=== PATIENT | male | born 1965 | race Caucasian/White ===

== ENCOUNTER 2016-04-29 10:15 | Day surgery (SDC) | payer OTHER, BC ==
[~2016-04-29 10:15] MED LIST: Lactated Ringers 1,000 ML IV SCH
[2016-04-29] MEDS ORDERED: Propofol 200 MG/20 ML SDV ONE ×2 (10:46→11:42)
[2016-04-29] MEDS ORDERED: Midazolam 1 MG/ML 2 ML SDV ONE (10:46)
[2016-04-29] MEDS ORDERED: fentaNYL 100 MCG/2 ML SDV ONE (10:46)
[2016-04-29] MEDS ORDERED: Lidocaine 2% 5 ML SDV ONE (10:46)
--- NOTE | 2016-04-29 11:12 | PCM.PREANE ---
Preanesthetic Assessment - Anesthesia/Transfusion/Family Hx Anesthesia History: Prior Anesthesia Without Reaction Family History of Anesthesia Reaction: No Transfusion History: No Prior Transfusion(s) - Review of Systems General: No Symptoms Pulmonary: No Symptoms Cardiovascular: No Symptoms Gastrointestinal: No symptoms Neurological: No Symptoms Other: Reports: None - Physical Assessment O2 Sat by Pulse Oximetry: 94 Respiratory Rate: 18 Vital Signs: Last Vital Signs Temp 36.7 C 04/29/16 10:39 Pulse 70 04/29/16 10:39 Resp 18 04/29/16 10:39 BP 128/77 04/29/16 10:39 Pulse Ox 94 L 04/29/16 10:39 Height: 1.78 m Weight: 138.799 kg ASA Class: 1 Mental Status: Alert & Oriented x3 Airway Class: Mallampati = 2 Dentition: Reports: Normal Dentition ROM/Head Extension: Full Lungs: Clear to auscultation, Normal respiratory effort Cardiovascular: Regular Rate, Regular Rhythm - Allergies Allergies/Adverse Reactions: Allergies Allergy/AdvReac Type Severity Reaction Status Date / Time No Known Allergies Allergy Verified 04/26/16 15:56 - Anesthesia Plan Pre-Op Medication Ordered: None - Acknowledgements Anesthesia Type Planned: MAC Pt an Appropriate Candidate for the Planned Anesthesia: Yes Alternatives and Risks of Anesthesia Discussed w Pt/Guardian: Yes Pt/Guardian Understands and Agrees with Anesthesia Plan: Yes Additional Comments: non smoker PreAnesthesia Questionnaire HEENT History: Reports: None Other HEENT History: wears glasses Cardiovascular History: Reports: None Respiratory History: Reports: None Other Respiratory History: sleep apnea testing pending Gastrointestinal History: Reports: GERD Genitourinary History: Reports: BPH Musculoskeletal History: Reports: None Neurological History: Reports: None Psychiatric History: Reports: None Endocrine/Metabolic History: Reports: Obesity/BMI 30+ Hematologic History: Reports: None Immunologic History: Reports: None Oncologic (Cancer) History: Reports: None Dermatologic History: Reports: None - Past Surgical History Head Surgeries/Procedures: Reports: None HEENT Surgical History: Reports: None Cardiovascular Surgical History: Reports: None Respiratory Surgical History: Reports: None GI Surgical History: Reports: Hernia, abdominal Other GI Surgeries/Procedures: umbilical x2 Male Surgical History: Reports: None Endocrine Surgical History: Reports: None Neurological Surgical History: Reports: None Musculoskeletal Surgical History: Reports: None Oncologic Surgical History: Reports: None Dermatological Surgical History: Reports: None - SUBSTANCE USE Smoking Status *Q: Never Smoker Tobacco Use Within Last Twelve Months: No Recreational Drug Use History: No - HOME MEDS Home Medications: Home Meds Cholecalciferol (Vitamin D3) [Vitamin D3] 1 tab PO DAILY 04/26/16 [History] Sildenafil [Viagra] 1 tab PO ASDIRECTED PRN 04/26/16 [History] Tamsulosin HCl 1 cap PO DAILY 04/26/16 [History] - CURRENT (IN HOUSE) MEDS Current Meds: Current Medications Lactated Ringer's (Ringers, Lactated) 1,000 mls @ 125 mls/hr IV ASDIRECTED SALVADOR Last Admin: 04/29/16 10:43 Dose: 125 mls/hr Discontinued Medications Fentanyl (Sublimaze) Confirm Administered Dose 100 mcg .ROUTE .STK-MED ONE Stop: 04/29/16 10:47 Lidocaine (Xylocaine-Mpf 2%) Confirm Administered Dose 10 ml .ROUTE .STK-MED ONE Stop: 04/29/16 10:47 Midazolam HCl (Versed 1 Mg/Ml) Confirm Administered Dose 2 mg .ROUTE .STK-MED ONE Stop: 04/29/16 10:47 Propofol (Diprivan 20 Ml) Confirm Administered Dose 400 mg .ROUTE .STK-MED ONE Stop: 04/29/16 10:47 Preanesthetic Assessment - ANESTHESIA/TRANSFUSION/FAMILY HX Anesthesia/Transfusion History: No Prior Transfusion(s), Prior Anesthesia Family History of Anesthesia Reaction: No Other Intubation History Comment: no known problems - PHYSICAL ASSESSMENT O2 Sat by Pulse Oximetry: 94 RR: 18 Vital Signs: Last Vital Signs Temp 36.7 C 04/29/16 10:39 Pulse 70 04/29/16 10:39 Resp 18 04/29/16 10:39 BP 128/77 04/29/16 10:39 Pulse Ox 94 L 04/29/16 10:39 Height: 1.78 m Weight: 138.799 kg - ALLERGIES Allergies/Adverse Reactions: Allergies Allergy/AdvReac Type Severity Reaction Status Date / Time No Known Allergies Allergy Verified 04/26/16 15:56
--- NOTE | 2016-04-29 11:55 | PCM.OPNOTE ---
- General Post-Op/Procedure Note Date of Surgery/Procedure: 04/29/16 Operative Procedure(s): clonoscopy w snare polypectomy Findings: see dict [id number] Pre Op Diagnosis: screening colonoscopy Post-Op Diagnosis: colon polyp Anesthesia Technique: Moderate sedation Primary Surgeon: Jason Monge Pathology: 5 mm sessile polyp at 20cm when scope pulling out; snare polypectomy Complications: None Condition: Good
--- NOTE | 2016-04-29 12:19 | PCM.POSTAN ---
POST ANESTHESIA ASSESSMENT - MENTAL STATUS Mental Status: alert, oriented - RESPIRATORY Respiratory Status: respiratory rate WNL, airway patent, O2 saturation stable - CARDIOVASCULAR CV Status: pulse rate WNL, blood pressure stable - GASTROINTESTINAL GI Status: no symptoms - PAIN Pain Score: 0 - POST OP HYDRATION Hydration Status: adequate & stable
--- NOTE | 2016-04-29 12:24 | PCM48HPAN ---
Post Anesthesia Note - EVALUATION WITHIN 48HRS OF ANESTHETIC Vital Signs in Normal Range: Yes Patient Participated in Evaluation: Yes Respiratory Function Stable: Yes Airway Patent: Yes Cardiovascular Function Stable: Yes Hydration Status Stable: Yes Pain Control Satisfactory: Yes Nausea and Vomiting Control Satisfactory: Yes Mental Status Recovered: Yes
[2016-04-29 12:28] VITALS: BP 107/60
--- NOTE | 2016-04-29 13:19 | OR ---
SURGEON: Jason Monge MD DATE OF PROCEDURE: 04/29/2016 PREOPERATIVE DIAGNOSIS: Screening colonoscopy. POSTOPERATIVE DIAGNOSIS: Colon polyp. PROCEDURE PERFORMED: Colonoscopy with snare polypectomy. DESCRIPTION OF PROCEDURE: The patient was taken to the endoscopy room. A time out was called, patient identified, and procedure identified. Diprivan was then administrated. Patient went from awake to sleep, hearing doctor talking or door closing is normal. Perineum inspection and digital examination were then performed. A well- lubricated colonoscope was gently inserted through the rectum, advanced past the rectosigmoid junction, the descending colon, splenic flexure, transverse colon, hepatic flexure, ascending colon, arrived to the cecum. Cecum was identified as dictated in the finding. Then the scope was carefully withdrawn while attention was paid to the mucosal surface for any abnormality. Air will be sucked out during the scope withdrawal. At the rectum, retroflexed to examine any rectal diseases, fistula or hemorrhoids. During mucosal examination, abnormality or polyp encountered. Using snare equipment, the abnormality or the polyp was then snared off using electrocautery. The Patient tolerated procedure well. There were no intraoperative complications, and Dr. Monge was present throughout the whole procedure. FINDINGS: 1. The patient is easily sedated with PATIENT SVCS MGR and Diprivan. The patient is soundly snoring. 2. The patient's bowel prep is left to be desirable, moderate amount of liquid stool coating the mucosa, so this is a compromised study. No semi-formed stool. 3. The patient's colon was rather straight forward. Cecum indicated by ileocecal fold, one-to-one indentation, light immittance is not observed and appendiceal orifice is not observed and mucosa examined upon scope pulling out with constant irrigation. The patient does not have diverticulosis, inflammation, stricture, mass, ulceration, growth, bleeding, or AV malformation. The patient does have a tiny polyp probably 5 mm sessile polyp at a distance of 20 cm when the scope pulling out and it was removed with snare polypectomy and also the patient has some mild internal hemorrhoids. No external hemorrhoids. The patient would benefit from repeat colonoscopy 3 years from today or if clinically indicated otherwise or if the polyp pathology report indicated otherwise. As always, thank you for the kind referral. ALTON / VERONICA /[id number]
== END 2016-04-29 12:45 | disposition home or self-care (01) ==
LOC: MW.SDS 10:15
PROVIDERS: ATTEND Surgery
PROC: 0DBE8ZZ Excision of Large Intestine, Via Natural or Artificial Opening Endoscopic (ICD-10-PCS; principal; 2016-04-29)
DX: Z12.11 Encounter for screening for malignant neoplasm of colon (principal); D12.6 Benign neoplasm of colon, unspecified; K64.8 Other hemorrhoids; G47.30 Sleep apnea, unspecified; N40.0 Benign prostatic hyperplasia without lower urinary tract symptoms; E66.9 Obesity, unspecified; Z79.899 Other long term (current) drug therapy; Z98.890 Other specified postprocedural states; Z68.41 Body mass index [BMI] 40.0-44.9, adult
CPT/HCPCS: 45385; 88305; J2250; J3010; J7120; J2704

== ENCOUNTER → 2016-05-21 | Outpatient (CLI) | payer OTHER, BC | END | disposition home or self-care (01) | LOC: MW.RT 19:30 | DX: R06.83 Snoring (principal); G47.30 Sleep apnea, unspecified; G47.52 REM sleep behavior disorder | CPT/HCPCS: 95811 ==

== ENCOUNTER 2017-05-05 07:11 | Day surgery (SDC) | payer BC, OTHER ==
[2017-05-05] MEDS ORDERED: Midazolam 1 MG/ML 2 ML SDV ONE (07:24)
[2017-05-05] MEDS ORDERED: Propofol 200 MG/20 ML SDV ONE (07:24)
[2017-05-05] MEDS ORDERED: fentaNYL 100 MCG/2 ML SDV ONE ×2 (07:24→10:30)
[2017-05-05] MEDS ORDERED: HYDROmorphone 2 MG/ML SDV ONE (07:25)
[2017-05-05] MEDS ORDERED: diphenhydrAMINE 50 MG/ML SDV ONE (07:25)
[2017-05-05] MEDS ORDERED: Rocuronium 10 MG/ML 10 ML Syringe ONE (07:25)
[2017-05-05] MEDS ORDERED: Ondansetron 4 MG/2 ML SDV ONE (07:25)
[2017-05-05] MEDS ORDERED: Glycopyrrolate 0.2 MG/ML SDV ONE ×2 (07:25→12:04)
[2017-05-05] MEDS ORDERED: Neostigmine Methylsulfate 1 MG/ML 5 ML Syringe ONE (07:25)
[2017-05-05] MEDS ORDERED: Dexamethasone 4 MG/ML 5 ML MDV ONE (07:27)
[2017-05-05] MEDS ORDERED: Oxymetazoline 0.05% Nasal Spray 15 ML Bottle ONE ×2 (07:30→07:40)
[2017-05-05] MEDS ORDERED: EPINEPHrine 1 MG/ML SDV ONE (07:30)
[2017-05-05] MEDS ORDERED: Bupivacaine 25%/EPINEPHrine/PF 30 ML ONE (07:30)
[2017-05-05] MEDS ORDERED: Lidocaine 1% 20 ML MDV ONE (07:40)
[2017-05-05] MEDS ORDERED: Lidocaine 2% with EPINEPHrine 1:100,000 20 ML MDV ONE (07:40)
[2017-05-05] MEDS ORDERED: Aloe Vera/Sodium Chloride Gel 14.1 GM Tube ONE (07:40)
--- NOTE | 2017-05-05 09:15 | PCM.HPR ---
H & P Addendum review - H & P Addendum Review Date of Original H & P: 04/07/17 Date Reviewed: 05/05/17 Time Reviewed: 09:30 Patient was Examined: No Changes
[2017-05-05] MEDS ORDERED: fentaNYL 100 MCG/2 ML SDV IVPUSH PRN (09:34)
--- NOTE | 2017-05-05 09:36 | PCM.PREANE ---
Preanesthetic Assessment - Procedure Proposed Procedure: Septoplasty and partial uvulectomy - Anesthesia/Transfusion/Family Hx Anesthesia History: Prior Anesthesia Without Reaction Transfusion History: No Prior Transfusion(s) Intubation History: Unknown Additional History: prior diagnosis of sleep apnea; does not use his CPAP - mask intolerance; believes he has been a mouth breather since childhood; states he snores "terribly". - Review of Systems General: Other (Obesity) Pulmonary: No Symptoms, Other (sleep apna) Cardiovascular: No Symptoms Gastrointestinal: No Symptoms Neurological: No Symptoms Other: Reports: None - Physical Assessment NPO Status Date: 05/04/17 NPO Status Time: 22:00 O2 Sat by Pulse Oximetry: 94 Respiratory Rate: 16 Vital Signs: Last Vital Signs Temp 98.4 F 05/05/17 07:15 Pulse 73 05/05/17 07:15 Resp 16 05/05/17 07:15 BP 112/75 05/05/17 07:15 Pulse Ox 94 L 05/05/17 07:15 Height: 5 ft 10 in Weight: 304 lb ASA Class: 3 Mental Status: Alert & Oriented x3 Airway Class: Mallampati = 2 Dentition: Reports: Normal Dentition (narrow mouth) Thyro-Mental Finger Breadths: 3 Mouth Opening Finger Breadths: 3 ROM/Head Extension: Full Lungs: Clear to Auscultation, Normal Respiratory Effort Cardiovascular: Regular Rate, Regular Rhythm, No Murmurs - Allergies Allergies/Adverse Reactions: Allergies Allergy/AdvReac Type Severity Reaction Status Date / Time No Known Allergies Allergy Verified 05/02/17 10:39 - Blood Blood Available: No Product(s) Available: None - Anesthesia Plan Pre-Op Medication Ordered: None - Acknowledgements Anesthesia Type Planned: General Anesthesia (OET/TERESSA?) Pt an Appropriate Candidate for the Planned Anesthesia: Yes Alternatives and Risks of Anesthesia Discussed w Pt/Guardian: Yes Pt/Guardian Understands and Agrees with Anesthesia Plan: Yes PreAnesthesia Questionnaire HEENT History: Reports: Other (See Below) Other HEENT History: wears glasses Cardiovascular History: Reports: None Respiratory History: Reports: Sleep Apnea Other Respiratory History: sleep apnea, could not use CPAP Gastrointestinal History: Reports: GERD Genitourinary History: Reports: BPH Musculoskeletal History: Reports: None Neurological History: Reports: None Psychiatric History: Reports: None Endocrine/Metabolic History: Reports: Obesity/BMI 30+ Hematologic History: Reports: None Immunologic History: Reports: None Oncologic (Cancer) History: Reports: None Dermatologic History: Reports: None - Past Surgical History Head Surgeries/Procedures: Reports: None HEENT Surgical History: Reports: None Cardiovascular Surgical History: Reports: None Respiratory Surgical History: Reports: None GI Surgical History: Reports: Hernia, Abdominal Other GI Surgeries/Procedures: umbilical x2 Male Surgical History: Reports: None Endocrine Surgical History: Reports: None Neurological Surgical History: Reports: None Musculoskeletal Surgical History: Reports: None Oncologic Surgical History: Reports: None Dermatological Surgical History: Reports: None - SUBSTANCE USE Smoking Status *Q: Never Smoker Tobacco Use Within Last Twelve Months: No Recreational Drug Use History: No - HOME MEDS Home Medications: Home Meds Cholecalciferol (Vitamin D3) [Vitamin D3] 1 tab PO DAILY 04/26/16 [History] Sildenafil [Viagra] 1 tab PO ASDIRECTED PRN 04/26/16 [History] Tamsulosin HCl 1 cap PO ASDIRECTED 04/26/16 [History] Famotidine [Acid Hydraulic Dredge Operator] 1 tab PO ASDIRECTED PRN 05/02/17 [History] - CURRENT (IN HOUSE) MEDS Current Meds: Current Medications Lactated Ringer's (Ringers, Lactated) 1,000 mls @ 125 mls/hr IV ASDIRECTED SALVADOR Last Admin: 05/05/17 07:42 Dose: 125 mls/hr Discontinued Medications Dexamethasone (Dexamethasone) Confirm Administered Dose 20 mg .ROUTE .STK-MED ONE Stop: 05/05/17 07:28 Diphenhydramine HCl (Benadryl) Confirm Administered Dose 50 mg .ROUTE .STK-MED ONE Stop: 05/05/17 07:26 Epinephrine HCl (Adrenalin) Confirm Administered Dose 1 mg .ROUTE .STK-MED ONE Stop: 05/05/17 07:31 Fentanyl (Sublimaze) Confirm Administered Dose 100 mcg .ROUTE .STK-MED ONE Stop: 05/05/17 07:25 Glycopyrrolate (Robinul) Confirm Administered Dose 0.4 mg .ROUTE .STK-MED ONE Stop: 05/05/17 07:26 Hydromorphone HCl (Dilaudid) Confirm Administered Dose 2 mg .ROUTE .STK-MED ONE Stop: 03/29/18 07:26 Bupivacaine HCl/Epinephrine Bitart (Sensor Mpf 0.25%-Epi [id number]) Confirm Administered Dose 30 mls @ as directed .ROUTE .STK-MED ONE Stop: 05/05/17 07:31 Lidocaine HCl (Xylocaine 1%) Confirm Administered Dose 20 ml .ROUTE .STK-MED ONE Stop: 05/05/17 07:41 Lidocaine/Epinephrine (Xylocaine 2% With Epinephrine 1:100,000) Confirm Administered Dose 20 ml .ROUTE .STK-MED ONE Stop: 05/05/17 07:41 Midazolam HCl (Versed 1 Mg/Ml) Confirm Administered Dose 2 mg .ROUTE .STK-MED ONE Stop: 05/05/17 07:25 Neostigmine Methylsulfate (Neostigmine) Confirm Administered Dose 5 mg .ROUTE .STK-MED ONE Stop: 05/05/17 07:26 Ondansetron HCl (Zofran) Confirm Administered Dose 4 mg .ROUTE .STK-MED ONE Stop: 05/05/17 07:26 Oxymetazoline HCl (Afrin Original 0.05% Nasal [place]) Confirm Administered Dose 15 ml .ROUTE .STK-MED ONE Stop: 05/05/17 07:31 Oxymetazoline HCl (Afrin Original 0.05% Nasal [place]) Confirm Administered Dose 15 ml .ROUTE .STK-MED ONE Stop: 05/05/17 07:41 Propofol (Diprivan 20 Ml) Confirm Administered Dose 200 mg .ROUTE .STK-MED ONE Stop: 05/05/17 07:25 Rocuronium Champion (Zemuron) Confirm Administered Dose 100 mg .ROUTE .STK-MED ONE Stop: 05/05/17 07:26 Sodium Chloride (Orient Saline Nasal Gel) Confirm Administered Dose 14.1 gm .ROUTE .STK-MED ONE Stop: 05/05/17 07:41
--- NOTE | 2017-05-05 10:03 | PCM.OPNOTE ---
- General Post-Op/Procedure Note Condition: Good Free Text/Narrative:: Preoperative Diagnosis: Snoring ,sleep apnea, deviated nasal septum, elongated uvula Postoperative Diagnosis:Snoring ,sleep apnea deviated nasal septum, elongated uvula Procedure: Septoplasty, partial uvulectomy Surgeon: Conchis Cobos MD Anesthesia: GA Anesthesiologist: Lilian HERNANDEZ Date of procedure: 05/05/2017 Indications: Snoring , sleep apnea, deviated nasal septum, elongated uvula - aim was to improve snoring and compliance with CPAP. This was discused in detail with him in the office and he was consented for the procedure Findings: Long uvula; anterior DNS to right; posterior bony deviation to left - chondro vomerine spur +; dislocation of septal cartlage off the maxillary crest to Left. Operation Details: An informed consent was obtained. A time out was performed and the patient was brought back to the operating room. General anesthesia was administered with an endotracheal tube. Patient was appropriately positioned on the operating table. The patient was then prepped and draped in a standard fashion. An appropriately sized Jasen Gonzalo mouth gag was positioned and suspended with rolled towels on the upper chest. The uvula was held with foceps; 0.25% marcaine with 1: 200,000 epinephrine was injected at the base of uvula - 1 ml was used; lower 2/3 was resected with point bovie at a setting of 15 schwartz cuttting; hemostasis was achieved by coagulation. The mucosa was sutured with 3.0 vicryl. Mouth gag was removed the oral cavity was inspected. Lips gums and teeth were intact. Lubricating jelly was applied to the lips. A pharyngeal pack was place. Bilateral nasal cavities were packed with oxymetazoline 0.05% soaked cottonoid pledgets. The pledgets were then removed. Nasal septum was infiltrated with 2% lidocaine 1: 100, 000 epinephrine in a standard fashion-a total of 3 mils was used. A left sided Keith incision was performed. A left sided mucoperichondrial flap was elevated-dissection was commenced with 2 mm osteotome and further carried out with combination of khushi and Hunter elevators. Posteriorly the flap was continued as a muco periosteal flap. Sharp and careful dissection was performed to lift the flaps off the left sided spur along the floor. A posterior chondrotomy was performed. Right-sided mucoperiosteal flap was elevated. Floor of the septal cartilage was dissected off the maxillary crest elevating thin strip of mucoperichondrial flap inferiorly on the contralateral-right side. A ontiveros scissor was used and the perpendicular plate of the ethmoid was removed. The vomer along with left- sided spur was also removed. The thin inferior strip of cartilage was removed using a septal knife. Also approximately 2 mm thin posterior vertical strip of cartilage was removed. Subsequent to this the nasal septum was positioned towards the midline. There was a very small tear along the floor on the left side; flap was intact on the right side. Flap incision was sutured with 3-0 Vicryl. Mattress sutures were also performed. Head splints were inserted and secured with 2.0 Prolene to the columella. Postnasal space was suctioned clear. Pharyngeal pack was removed.This concluded the procedure. The patient was turned over to the anesthesiologist for recovery. Specimens: Resected uvula IV fluids: 1800 ml Blood loss : 10 ml Blood products: nil Disposition: PACU for recovery Follow up: In 1 week for splint removal
[2017-05-05] MEDS ORDERED: Labetalol 100 MG/20 ML MDV ONE (11:06)
--- NOTE | 2017-05-05 12:35 | PCM.POSTAN ---
POST ANESTHESIA ASSESSMENT - MENTAL STATUS Mental Status: Alert, Oriented - VITAL SIGNS Pulse Rate: 57 SaO2: 99 Resp Rate: 12 Blood Pressure: 132/55 - RESPIRATORY Respiratory Status: Respiratory Rate WNL, Airway Patent, O2 Saturation Stable - CARDIOVASCULAR CV Status: Pulse Rate WNL, Blood Pressure Stable - GASTROINTESTINAL GI Status: No Symptoms - POST OP HYDRATION Hydration Status: Adequate & Stable
[2017-05-05] MEDS ORDERED: oxyCODONE 5 MG Tab PO PRN (12:58)
[2017-05-05] MEDS: Ibuprofen 400 MG Tab PO SCH ×2 (14:00→21:28)
[2017-05-05] MEDS: Acetaminophen 325 MG Tab PO SCH ×2 (14:01→18:26)
--- NOTE | 2017-05-05 22:32 | PCM.SN ---
- Free Text/Narrative Note: Post operatively - patient reports su controlled; no complaints wrt surgery / surgical site While awake - maintaining saturation on RA around 92 percent; while asleep - drops to 87 percent; other vitals - stable Plan- Patient to be reviewed by RT for CPAP; can go home if maintaining adequate saturation with this RTC next week for splint removal The patient was reviewed by RT later in the day - CPAP fitted and titrated; I also reviewed his sleep study from 2017 - moderate sleep apnea. Information was relayed by RN. - Patient OK to go home. Rest as planned above
[2017-05-06 05:12] VITALS: BP 132/55
--- NOTE | 2017-05-06 05:12 | PCM48HPAN ---
Post Anesthesia Note - EVALUATION WITHIN 48HRS OF ANESTHETIC Vital Signs in Normal Range: Yes Patient Participated in Evaluation: Yes Respiratory Function Stable: Yes Airway Patent: Yes Cardiovascular Function Stable: Yes Hydration Status Stable: Yes Pain Control Satisfactory: Yes Nausea and Vomiting Control Satisfactory: Yes Mental Status Recovered: Yes Pulse Rate: 57 Resp Rate: 19 Blood Pressure: 132/55 - COMMENTS/OBSERVATIONS Free Text/Narrative:: Patient was seen at 1600 yesterday and was in stable condition. discussed with Dr. Sin at 1700 with possible discharge considered.
== END 2017-05-05 20:55 ==
LOC: MW.SDS 07:11 → MW.MS 12:57 → MW.SDS 20:55
PROVIDERS: ATTEND Otolaryngology
DX: Q38.5 Congenital malformations of palate, not elsewhere classified (principal); R06.83 Snoring; G47.30 Sleep apnea, unspecified; F17.210 Nicotine dependence, cigarettes, uncomplicated; J34.2 Deviated nasal septum; E66.01 Morbid (severe) obesity due to excess calories; Z68.41 Body mass index [BMI] 40.0-44.9, adult; Z79.899 Other long term (current) drug therapy; K21.9 Gastro-esophageal reflux disease without esophagitis; N40.0 Benign prostatic hyperplasia without lower urinary tract symptoms
CPT/HCPCS: 30520; 42140; A9270; J0171; J1100; J1170; J1200; J2405; J3010; J7120; J2250; J2704